=== PATIENT | male | born 1950 | race Caucasian/White ===

== ENCOUNTER → 2016-11-07 | Outpatient (CLI) | payer MEDICARE, OTHER ==
[~2016-11-07] MED LIST: ASCO250T2 PO; BUDE10.2 INH; CHOL10003 PO; CYAN100028 PO; IBUP200T5 PO; LOSA1TAB16 PO; METF500T4 PO; VITAMIN E PO; [UNRECOGNIZED DRUG - OTHER] PO
[2016-11-07 09:17] LABS: BLOOD UREA NITROGEN 16 mg/dL (7-18)
[2016-11-07 09:21] LABS: ASPARTATE AMINO TRANSFERASE 53 U/L (15-37)
== END | disposition home or self-care (01) ==
LOC: STAR 08:01
PROVIDERS: ATTEND Neurological Surgery
DX: Z01.811 Encounter for preprocedural respiratory examination (principal); I10 Essential (primary) hypertension; E11.9 Type 2 diabetes mellitus without complications; M51.36 Other intervertebral disc degeneration, lumbar region; M48.06 Spinal stenosis, lumbar region; M47.894 Other spondylosis, thoracic region; R79.1 Abnormal coagulation profile
CPT/HCPCS: 36415; 71020; 80053; 81003; 85025; 85610; 85730; 93005

== ENCOUNTER 2016-11-16 05:12 | Inpatient (IN) | payer OTHER ==
[2016-11-07 08:17] VITALS: BP 131/91
[~2016-11-16] VITALS: Ht 170.2 cm; Wt 109.3 kg
[~2016-11-16 05:12] MED LIST changes: +IBUP-1484 PO; -IBUP200T5 PO
[2016-11-16] MEDS ORDERED: LACTATED RINGERS 1,000 ML IV SCH (06:11)
[2016-11-16] MEDS ORDERED: METH750T2 PO (06:17)
[2016-11-16] MEDS ORDERED: HYDR-3245 PO (06:17)
[2016-11-16] MEDS ORDERED: LIDOCAINE 1%, 2ML SQ PRN (06:30)
[2016-11-16] MEDS ORDERED: PNEUMOCOCCAL 23 VACCINE IM-VACC ONE (07:00)
[2016-11-16] MEDS ORDERED: BUPIVACAINE/PF-EPI 0.5% 1:200K INFIL ONE (07:43)
[2016-11-16] MEDS ORDERED: BUPIVACAINE/PF 0.5% INFIL ONE (07:43)
[2016-11-16] MEDS ORDERED: BACITRACIN 50,000 UNIT IM ONE (07:44)
[2016-11-16] MEDS ORDERED: THROMBIN 5,000 UNIT VIAL TP ONE (07:44)
[2016-11-16] MEDS ORDERED: VANCOMYCIN 1,000 MG IM ONE (07:45)
[2016-11-16] MEDS ORDERED: INSULIN REGULAR 100 UNITS/ML, 3ML VIAL SQ-INSULIN PRN (12:00)
[2016-11-16] MEDS ORDERED: KETOROLAC 30 MG/1 ML IV PRN (12:00)
[2016-11-16] MEDS ORDERED: BISACODYL 10 MG SUPP PR PRN (12:00)
[2016-11-16] MEDS ORDERED: ACETAMINOPHEN 325 MG TABLET PO PRN (12:00)
[2016-11-16] MEDS ORDERED: MEPERIDINE/PF 25MG/0.5ML IVPush PRN (12:00)
[2016-11-16] MEDS ORDERED: OXYcodone 5 MG/5 ML ORAL.SOL UDC PO PRN (12:00)
[2016-11-16] MEDS ORDERED: PHARMACY MAY ADJ FOR RENAL FX MC PRN (12:00)
[2016-11-16] MEDS ORDERED: DIPHENHYDRAMINE 50 MG CAPSULE PO PRN (12:00)
[2016-11-16] MEDS ORDERED: MAGNESIUM HYDROXIDE 8%, 30ML UDC PO PRN (12:00)
[2016-11-16] MEDS ORDERED: HYDROmorphone 1 MG/ML, 1ML IV PRN (12:00)
[2016-11-16] MEDS ORDERED: LABETALOL 5MG/ML, 20ML IVPush PRN (12:00)
[2016-11-16] MEDS ORDERED: SENNA/DOCUSATE TABLET PO PRN (12:00)
[2016-11-16] MEDS ORDERED: DIPHENHYDRAMINE 50 MG/ML, 1ML IVPush PRN (12:00)
[2016-11-16] MEDS ORDERED: PROMETHAZINE 25 MG/ML, 1ML IM PRN (12:00)
[2016-11-16] MEDS ORDERED: ONDANSETRON 2MG/ML, 2ML IVPush PRN ×2 (12:00)
[2016-11-16] MEDS ORDERED: ACETAMINOPHEN 650 MG/20.3 ML UDC ONE (12:04)
[2016-11-16] MEDS ORDERED: OXYcodone 5 MG/5 ML ORAL.SOL UDC ONE (12:04)
[2016-11-16] MEDS ORDERED: FENTANYL PF 100 MCG/2ML ONE (12:04)
[2016-11-16] MEDS: FENTANYL PF 100 MCG/2ML IV PRN ×2 (12:07→12:23)
[2016-11-16] MEDS ORDERED: MEPERIDINE/PF 25MG/0.5ML ONE (12:25)
[2016-11-16] MEDS ORDERED: INSULIN SINGLE DOSE, ER SQ-INSULIN ONE (12:56)
[2016-11-16] MEDS: NS + 20MEQ KCL 1,000 ML IV SCH (14:45)
[2016-11-16] MEDS: CEFAZOLIN PMX 1GM/50ML 50 ML IVPB SCH ×2 (15:37→23:22)
[2016-11-16] MEDS ORDERED: PROPOFOL 10 MG/ML, 20ML ONE (16:11)
[2016-11-16] MEDS ORDERED: DEXAMETHASONE 4 MG/ML, 5ML ONE (16:11)
[2016-11-16] MEDS ORDERED: ONDANSETRON 2MG/ML, 2ML ONE (16:11)
[2016-11-16] MEDS ORDERED: CEFAZOLIN 1,000 MG ONE (16:11)
[2016-11-16 18:40] VITALS: BP 101/70
[2016-11-16] MEDS: metFORMIN 500 MG TABLET PO SCH (20:55)
[2016-11-17] MEDS: NS + 20MEQ KCL 1,000 ML IV SCH ×4 (01:42→22:49)
[2016-11-17 02:06] VITALS: BP 123/85
[2016-11-17 05:52] LABS: HEMATOCRIT 29.3 % (39.2-51.8); HEMOGLOBIN 9.8 g/dL (13.7-18.0); WHITE BLOOD COUNT 9.9 x10^3/uL (3.4-10)
[2016-11-17 06:06] LABS: BLOOD UREA NITROGEN 17 mg/dL (7-18)
[2016-11-17] MEDS ORDERED: HYDROmorphone 1 MG/ML, 1ML IV PRN (07:30)
[2016-11-17] MEDS: metFORMIN 500 MG TABLET PO SCH ×2 (08:16→21:42)
[2016-11-17] MEDS: LOSARTAN 50MG TABLET PO SCH (08:16)
[2016-11-17] MEDS: HYDROCHLOROTHIAZIDE 12.5 MG CAPSULE PO SCH (08:16)
[2016-11-17 08:17] VITALS: BP 144/89
[2016-11-17] MEDS: METHOCARBAMOL 750 MG TABLET PO PRN (08:17)
[2016-11-17] MEDS: ENOXAPARIN 40 MG/0.4 ML SQ SCH (08:17)
[2016-11-17] MEDS: KETOROLAC 30 MG/1 ML IV SCH ×3 (08:17→21:42)
[2016-11-17] MEDS: FLUTICASONE/VILANTEROL 200-25MCG/INH INH SCH (08:17)
[2016-11-17 15:16] VITALS: BP 110/75
[2016-11-17 18:39] VITALS: BP 107/66
[2016-11-18 02:27] VITALS: BP 131/73
[2016-11-18] MEDS: KETOROLAC 30 MG/1 ML IV SCH (03:14)
[2016-11-18 05:58] LABS: BLOOD UREA NITROGEN 18 mg/dL (7-18)
[2016-11-18 06:08] LABS: HEMATOCRIT 26.6 % (39.2-51.8); HEMOGLOBIN 8.8 g/dL (13.7-18.0); WHITE BLOOD COUNT 6.9 x10^3/uL (3.4-10)
[2016-11-18] MEDS: NS + 20MEQ KCL 1,000 ML IV SCH (08:00)
[2016-11-18 08:03] VITALS: BP 135/80
[2016-11-18] MEDS: LOSARTAN 50MG TABLET PO SCH (08:03)
[2016-11-18] MEDS: FLUTICASONE/VILANTEROL 200-25MCG/INH INH SCH (08:03)
[2016-11-18] MEDS: ENOXAPARIN 40 MG/0.4 ML SQ SCH (08:03)
[2016-11-18] MEDS: METHOCARBAMOL 750 MG TABLET PO PRN (08:03)
[2016-11-18] MEDS: metFORMIN 500 MG TABLET PO SCH (08:03)
[2016-11-18] MEDS: HYDROCHLOROTHIAZIDE 12.5 MG CAPSULE PO SCH (08:03)
[2016-11-18] MEDS ORDERED: OXYcodone 5 MG/5 ML ORAL.SOL UDC PO PRN (09:30)
[2016-11-18] MEDS ORDERED: OXYcodone IR 5MG TABLET ONE (09:36)
[2016-11-18] MEDS: OXYcodone IR 5MG TABLET PO PRN ×2 (09:38→13:51)
[2016-11-18] MEDS ORDERED: GABA300C PO (14:46)
== END 2016-11-18 15:00 | disposition home or self-care (01) | DRG 460 ==
LOC: ORIP 05:12 → 4NOR 13:43 → DCLOUNGE 11-18 14:44
PROVIDERS: ADMIT Neurological Surgery; ATTEND Neurological Surgery
PROC: 0SG3071 Fusion of Lumbosacral Joint with Autologous Tissue Substitute, Posterior Approach, Posterior Column, Open Approach (ICD-10-PCS; 2016-11-16)
PROC: 0SG1071 Fusion of 2 or more Lumbar Vertebral Joints with Autologous Tissue Substitute, Posterior Approach, Posterior Column, Open Approach (ICD-10-PCS; 2016-11-16)
PROC: 01NB0ZZ Release Lumbar Nerve, Open Approach (ICD-10-PCS; 2016-11-16)
PROC: 4A11X4G Monitoring of Peripheral Nervous Electrical Activity, Intraoperative, External Approach (ICD-10-PCS; principal; 2016-11-16 07:00)
DX: M48.06 Spinal stenosis, lumbar region (principal); I10 Essential (primary) hypertension; M54.17 Radiculopathy, lumbosacral region; E11.9 Type 2 diabetes mellitus without complications; M19.90 Unspecified osteoarthritis, unspecified site; G47.33 Obstructive sleep apnea (adult) (pediatric); Z79.84 Long term (current) use of oral hypoglycemic drugs; M47.816 Spondylosis without myelopathy or radiculopathy, lumbar region; M43.16 Spondylolisthesis, lumbar region; M43.17 Spondylolisthesis, lumbosacral region
CPT/HCPCS: 36415; 72100; 80048; 82962; 85025; 86850; 86900; 90732; C1713; C1729; J0690; J1100; J1170; J1650; J1885; J2175; J2250; J2270; J2405; J2704; J3010; J3370; J3480; J3490; C1762; J7120